=== PATIENT | male | born 1995 | race Caucasian/White ===

== ENCOUNTER 2021-05-19 10:47 | Emergency (ER) | payer OTHER, SELFPAY ==
[2021-05-19 10:58] VITALS: BP 140/77; PULSE 74; RESP 16; TEMP 36.6; O2SAT 99
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
== END 2021-05-19 12:00 | disposition home or self-care (01) ==
PROVIDERS: Emergency Provider Nurse Practitioner Family
DX: S39.012A Strain of muscle, fascia and tendon of lower back, initial encounter (principal); X50.9XXA Other and unspecified overexertion or strenuous movements or postures, initial encounter; X50.3XXA Overexertion from repetitive movements, initial encounter
CPT/HCPCS: 99213; G0463